=== PATIENT | male | born 1980 | race Asian ===

== ENCOUNTER 2023-11-07 06:41 | Day surgery (SDC) | payer BC ==
[~2023-11-07] VITALS: Ht 182.9 cm; Wt 69.4 kg
[2023-11-07] MEDS ORDERED: CEFAZOLIN SOD 2 GM in D5W 50 ML IV ONE (07:00)
[2023-11-07] MEDS ORDERED: MIDAZOLAM HCL 2 MG/2 ML VIAL (VERSED) ONE (07:59)
[2023-11-07] MEDS ORDERED: KETAMINE HCL IN 0.9 % NACL 50 MG/5 ML SYRINGE ONE (08:00)
[2023-11-07 08:42] VITALS: O2SAT 100
[2023-11-07] MEDS ORDERED: LIDOCAINE/EPI 1% 1:100000 20 ML VIAL ONE (09:02)
[2023-11-07] MEDS ORDERED: NS IRRIG SOLN 1000 ML IR ONE (09:02)
[2023-11-07] MEDS ORDERED: LR 1,000 ML IV.SOLN IV ONE (09:02)
[2023-11-07] MEDS ORDERED: NALOXONE HCL 0.4 MG/ML AMP (NARCAN) IVP PRN (10:45)
[2023-11-07] MEDS ORDERED: ONDANSETRON HCL 4 MG/2 ML VIAL IVP PRN (10:45)
[2023-11-07] MEDS ORDERED: ONDANSETRON 4 MG ODT TAB PO PRN (10:45)
[2023-11-07] MEDS ORDERED: ACETAMINOPHEN/CODEINE 300 MG-30 MG TABLET PO PRN (10:45)
[2023-11-07 12:13] VITALS: BP_SYST 113; PULSE 74; RESP 18
== END 2023-11-07 11:34 | disposition home or self-care (01) ==
LOC: SDS 06:41 → SMU 06:42 → SDS 11:34
PROVIDERS: ATTEND Otolaryngology
DX: R22.1 Localized swelling, mass and lump, neck (principal); L72.0 Epidermal cyst; Z98.890 Other specified postprocedural states; Z79.899 Other long term (current) drug therapy
CPT/HCPCS: 87081; 42440; 88304; J0690; J3465; J7060; J7120; 88307